=== PATIENT | female | born 1960 | race Caucasian/White ===

== ENCOUNTER → 2017-08-06 | Outpatient (CLI) | payer OTHER ==
--- NOTE | 2017-08-08 20:30 | MR ---
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 Reflex per patient. TECHNIQUE: Multiplanar, multisequence images of the brain and brainstem is performed without and with IV contras t, utilizing 7 mL intravenous Gadavist . FINDINGS: Diffusion weighted images demonstrate no evidence of a recent infarct or other diffusion ab normality. There is no worrisome extra-axial fluid collections. The ventricular system and cisterna l spaces are normal in size and appearance. The brain volume is age appropriate. Foci of T2 hyperint ensity align the periventricular level bilateral frontal horns right larger than left on axial image 17. Midline structures demonstrate normal morphology. The craniocervical junction appears within normal limits. Post contrast images demonstrate no abnormal enhancement. There is dominant left vertebral a rtery which has tortuous course. The dural venous sinuses appear patent. The visualized sinuses are c lear and the globes are intact. IMPRESSION: No significant finding is seen to account for patient's symptoms.
== END | disposition home or self-care (01) ==
LOC: RADMRIMAIN 15:25
PROVIDERS: ATTEND Psychiatry & Neurology Neurology
DX: G40.109 Localization-related (focal) (partial) symptomatic epilepsy and epileptic syndromes with simple partial seizures, not intractable, without status epilepticus (principal)
CPT/HCPCS: 70553; A9581

== ENCOUNTER → 2021-07-07 | Outpatient (CLI) | payer OTHER ==
--- NOTE | 2021-07-09 08:08 | MM ---
Reason for exam: screening (asymptomatic). Last mammogram was performed 5 years and 2 months ago. History: Patient is postmenopausal. Benign stereotactic core biopsy of the left breast, December 24, 2003. Physical Findings: A clinical breast exam by your physician is recommended on an annual basis and results should be correlated with mammographic findings. MG 3D Screening Mammo W/Cad Bilateral CC and MLO view(s) were taken. Prior study comparison: May 14, 2016, bilateral MG 3d screening mammo w/cad. May 17, 2012, bilateral digital screening mammo w/CAD. May 13, 2011, bilateral digital screening mammo w/CAD. There are scattered fibroglandular densities. Previous mammotome biopsy in the left breast. There is chronic nodularity bilaterally. No significant changes when compared with prior studies. ASSESSMENT: Benign, BI-RAD 2 RECOMMENDATION: Routine screening mammogram of both breasts in 1 year.
== END | disposition home or self-care (01) ==
LOC: RADMAMWWP 13:21
PROVIDERS: ATTEND Pediatrics
DX: Z12.31 Encounter for screening mammogram for malignant neoplasm of breast (principal)
CPT/HCPCS: 77063; 77067

== ENCOUNTER → 2022-01-20 | Outpatient (CLI) | payer OTHER ==
--- NOTE | 2022-01-21 07:45 | US ---
EXAMINATION TYPE: US thyroid st tissue head/neck DATE OF EXAM: 01/20/2022 COMPARISON: NONE CLINICAL HISTORY: R22.1 neck mass. Lump area left clavi nika. Multiple hypoechoic areas seen largest 2.5 x 1.0 x 2.0 cm. IMPRESSION: 1. Several hypoechoic masses in the supraclavicular region with some vascularity. Findings are suspic ious for abnormal lymphadenopathy. Additional workup is recommended. CT soft tissue neck be performed with contrast.
== END | disposition home or self-care (01) ==
LOC: RADUSWWP 16:16
PROVIDERS: ATTEND Pediatrics
DX: R22.0 Localized swelling, mass and lump, head (principal)
CPT/HCPCS: 76536

== ENCOUNTER → 2022-02-02 | Outpatient (CLI) | payer OTHER ==
--- NOTE | 2022-02-02 22:02 | CT ---
EXAMINATION TYPE: CT soft tissue neck w con DATE OF EXAM: 02/02/2022 HISTORY: swelling lt side of neck COMPARISON: Ultrasound left neck January 20, 2022 CT DLP: 272.2 mGycm. Automated Exposure Control for Dose Reduction was Utilized. TECHNIQUE: CT scan of the neck is performed with IV Contrast, patient injected with 100ml mL of Isov ue 300, axial images are obtained, coronal and sagittal reformatted images are reviewed. FINDINGS: Airway: No gross abnormality seen. Parotid/submandibular glands: No gross abnormality seen. Carotid/Vascular Structures: Focal moderate peripheral calcified plaque right carotid bulb without si gnificant stenosis. Dominant left vertebral artery is incidentally noted. 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 Mild disc space narrowing and spurring C6-C7 level. Other: Abnormal left neck adenopathy greatest at level of thyroid gland but extending up to level of the vocal cords is confirmed as suspected on ultrasound. Multiple lymph nodes noted for reference axi al image 39 at level of left thyroid gland. Visualized portion of the left axilla shows no definitive abnormal adenopathy. IMPRESSION: Confirmation of abnormal left neck adenopathy. Differential includes neoplasm such as lym phoma. Consider PET/CT and/or imaging guided sampling for further analysis and/or workup.
== END | disposition home or self-care (01) ==
LOC: RADCTMAIN 16:13
PROVIDERS: ATTEND Pediatrics
DX: R59.0 Localized enlarged lymph nodes (principal)
CPT/HCPCS: 70491; Q9967

== ENCOUNTER → 2022-04-09 | Outpatient (CLI) | payer OTHER ==
--- NOTE | 2022-04-09 09:12 | US ---
EXAMINATION TYPE: US abdomen complete DATE OF EXAM: 04/09/2022 COMPARISON: NONE CLINICAL HISTORY: R59.0 lymphadenopathy. Lymphadenopathy EXAM MEASUREMENTS: Liver Length: 13.2 cm Gallbladder Wall: 0.3 cm CBD: 0.4 cm Spleen: 8.0 cm Right Kidney: 11.0 x 4.3 x 4.7 cm Left Kidney: 10.4 x 5.3 x 4.4 cm Pancreas: Tail partially obscured by overlying bowel gas Liver: No abnormalities seen Gallbladder: Distended with multiply non obstructing calcifications seen, largest measures 2.3 x 2.0 x 1.7 cm Evidence for sonographic Douglas's sign: No CBD: Appears wnl, partially obscured by shadowing stones Spleen: No abnormalities seen Right Kidney: No hydronephrosis or masses seen Left Kidney: No hydronephrosis or masses seen Upper IVC: Appears wnl Abd Aorta: Appears wnl Prox: 2.4 x 2.2 cm Mid: 1.8 x 2.2 cm Dist: 1.5 x 2.1 cm Rt Iliac Art: 1.5 x 1.1 cm Lt Iliac Art: 1.1 x 1.0 cm IMPRESSION: 1. No evidence for acute process. 2. Cholelithiasis.
== END | disposition home or self-care (01) ==
LOC: RADUSWWP 07:25
PROVIDERS: ATTEND Internal Medicine Hematology & Oncology
DX: K80.20 Calculus of gallbladder without cholecystitis without obstruction (principal)
CPT/HCPCS: 76700

== ENCOUNTER → 2024-05-26 | Outpatient (CLI) | payer MEDICARE, OTHER ==
--- NOTE | 2024-05-28 12:02 | MM ---
Reason for Exam: Screening (asymptomatic). Last mammogram was performed 2 year(s) and 11 month(s) ago. Patient History: Menarche at age 11. First Full-Term at age 25. Postmenopausal. 12/24/2003, Benign Stereotactic Core Biopsy on the left side. Maternal aunt had breast cancer. Maternal aunt had breast cancer. Risk Values: [place] 5 year model risk: 2.2%. NCI Lifetime model risk: 7.9%. Prior Study Comparison: 05/17/2012 Bilateral Screening Mammogram, [facility]. 05/14/2016 Bilateral Screening Mammogram, [facility]. 07/07/2021 Bilateral Screening Mammogram, [facility]. Tissue Density: There are scattered areas of fibroglandular density. Findings: Analyzed By CAD. Right breast: There is no suspicious group of microcalcifications or new suspicious mass. Left breast: There is no suspicious group of microcalcifications or new suspicious mass. Overall Assessment: Negative, BI-RAD 1 Management: Screening Mammogram of both breasts in [address] [facility] will attempt to contact patient to return for supplemental views and ultrasound if indicated. Patient should continue monthly self-breast exams. A clinical breast exam by your physician is recommended on an annual basis. This exam should not preclude additional follow-up of suspicious palpable abnormalities. Note on [place] scores and lifetime risk: 1. A [place] score greater than 3% is considered moderate risk. If this is the case, consider specialist referral to assess eligibility for a risk reducing agent. 2. If overall lifetime risk for the development of breast cancer is 20% or higher, the patient may qualify for future screening with alternating mammogram and breast MRI. Electronically signed and approved by: Zander Putnam DO
== END | disposition home or self-care (01) ==
LOC: RADMAMWWP 08:50
PROVIDERS: ATTEND Pediatrics
DX: Z12.31 Encounter for screening mammogram for malignant neoplasm of breast
CPT/HCPCS: 77063; 77067